=== PATIENT | male | born 1935 | race Caucasian/White ===

== ENCOUNTER → 2017-12-03 | Outpatient (CLI) | payer MEDICARE ==
[~2017-12-03] MED LIST: DUTA.5 PO; HYDR1TAB94 PO; LOSA50 PO; Pyridium100 MG PO; SULTRIDS PO; TERA5 PO
== END | disposition home or self-care (01) ==
LOC: LAB SHORT 14:06 → PLD 14:06
DX: C44.319 Basal cell carcinoma of skin of other parts of face (principal); D04.39 Carcinoma in situ of skin of other parts of face
CPT/HCPCS: 88305

== ENCOUNTER → 2017-12-18 | Outpatient (CLI) | payer MEDICARE | LOC: LAB SHORT 13:34 → PLD 13:34 | DX: C44.310 Basal cell carcinoma of skin of unspecified parts of face (principal) | CPT/HCPCS: 88305 ==

== ENCOUNTER → 2018-11-10 | Outpatient (CLI) | payer MEDICARE | END | disposition home or self-care (01) | LOC: LAB SHORT 10:03 → PLD 10:03 | DX: C44.329 Squamous cell carcinoma of skin of other parts of face (principal) | CPT/HCPCS: 88305 ==

== ENCOUNTER 2018-12-01 14:58 | Observation (INO) | payer MEDICARE ==
[~2018-12-01] VITALS: Ht 157.5 cm; Wt 51.5 kg
[~2018-12-01 14:58] MED LIST changes: +**INCOMPLETE MED REC; +CIPR250 PO
[2018-12-01 15:31] LABS: BASOPHILS ABSOLUTE AUTO 0.08 K/mm3 (0.00-0.23); BASOPHILS PERCENT AUTO 1 % (0-2); EOSINOPHILS ABSOLUTE AUTO 0.31 K/mm3 (0.00-0.68); EOSINOPHILS PERCENT AUTO 4 % (0-6); Hematocrit 36.5 % (37.0-53.0); Hemoglobin 11.4 g/dL (13.5-17.5); IMMATURE GRAN ABSOLUTE AUTO 0.02 K/mm3 (0.00-0.10); IMMATURE GRAN PERCENT AUTO 0 % (0-1); LYMPHOCYTES ABSOLUTE AUTO 1.34 K/mm3 (0.84-5.20); LYMPHOCYTES PERCENT AUTO 18 % (21-46); MONOCYTES ABSOLUTE AUTO 0.98 K/mm3 (0.16-1.47); MONOCYTES PERCENT AUTO 13 % (4-13); Mean Corpuscular HGB 30.6 pg (26.0-34.0); Mean Corpuscular HGB Conc 31.2 g/dL (31.5-36.5); Mean Platelet Volume 11.3 fL (9.1-12.4); NEUTROPHILS ABSOLUTE AUTO 4.83 K/mm3 (1.96-9.15); NEUTROPHILS PERCENT AUTO 64 % (41-73); Platelet Count 208 K/mm3 (150-400); RDW Coefficient Variation 13.5 % (11.7-14.2); RDW Standard Deviation 48.9 fL (35.1-46.3); Red Blood Cell Count 3.72 M/mm3 (4.30-5.90); White Blood Cell Count 7.56 K/mm3 (4.00-11.30)
[2018-12-01 15:32] LABS: Mean Corpuscular Volume 98 fL (80-100)
[2018-12-01 15:57] LABS: Albumin, Blood 3.7 g/dL (3.4-5.0); Albumin/Globulin Ratio 0.9 (0.8-1.8); Bilirubin, Total 0.3 mg/dL (0.1-1.0); Bun/Creatinine Ratio 23.5 (12.0-20.0); Calcium, Blood 8.4 mg/dL (8.5-10.1); Creatinine, Blood 1.49 mg/dL (0.60-1.20); Globulin, Blood 4.3 g/dL (2.2-4.0); Potassium, Blood 5.1 mmol/L (3.5-5.5)
[2018-12-01 20:22] LABS: Percent Saturation 15.4 % (20.0-50.0)
[2018-12-01 20:29] LABS: Magnesium, Blood 2.3 mg/dL (1.6-2.4)
[2018-12-01 20:31] LABS: Thyroid Stimulating Hormone 3.91 uIU/mL (0.360-4.800)
[2018-12-02 05:09] LABS: Hematocrit 32.9 % (37.0-53.0); Hemoglobin 10.5 g/dL (13.5-17.5)
[2018-12-02 05:35] LABS: Bun/Creatinine Ratio 22.1 (12.0-20.0); Calcium, Blood 8.2 mg/dL (8.5-10.1); Creatinine, Blood 1.36 mg/dL (0.60-1.20); Potassium, Blood 4.4 mmol/L (3.5-5.5)
--- NOTE | 2018-12-02 07:36 | NUR ---
SHIFT SUMMARY RECEIVED REPORT FROM ED RN. ARRIVED TO MEDICAL UNIT VIA STRETCHER @ 2152. APPEARED CONFUSED/DISORIENTED @ TIME OF ARRIVAL. ALERT TO SELF. REMAINS CONFUSED. SLOW TO RESPOND MOST OFTEN. BECAME COMBATIVE THIS AM WHEN AIDE WENT IN TO HELP HIM WITH THE URINAL AND TAKE VITALS. PLACED IN SOFT WRIST RESTRAINTS R/T INCREASED RISK FOR FALLS, CONFUSION AND COMBATIVENESS. APPEARED TO REST MUCH OF SHIFT AFTER ADMISSION. NOTED HYPERTENSION; HOWEVER APPEARS ON TREND WITH PREVIOUS PRESSURES. ALL OTHER VITALS WNL. BED IN LOWEST POSITION. ALARM ON. CALL LIGHT IN REACH. CONTINUED TO MONITOR OVERNIGHT. REPORT GIVEN TO ONCOMING RN.
--- NOTE | 2018-12-02 19:46 | NUR ---
SHIFT SUMMARY: NO ACUTE CHANGES TO REPORT THIS SHIFT. PT ALERT, ORIENTED TO SELF. ARGUMENTIVE, CONFUSED, DISORIENTED; BILATERAL SOFT WRIST RESTRAINTS IN PLACE. PT INCONTINENT OF BOWEL AND BLADDER; ATTENDS IN PLACE. LACERATION TO SCALP; SEVEN VINCENT; RAFAEL. MEPILEX IN PLACE TO LEFT ELBOW SKIN TEAR. LEFT HAND SKIN TEAR; KERLEX IN PLACE. PT & OT EVAL & TREAT R/T WEAKNESS & RECENT FALLS AT HOME. REPORT GIVEN TO ONCOMING RN.
--- NOTE | 2018-12-03 04:38 | NUR ---
NOC SHIFT SUMMARY PT HAS BEEN CONFUSED THIS NIGHT. WRIST RESTRAINTS HAVE BEEN NECESSARY THROUGHOUT THE NIGHT PT ATTEMPTS TO PULL OUT IV AND STRIKE STAFF WHEN GIVING CARE. PT HAS BEEN REPOSITIONED EVERY TWO HOURS. RESTRAINT ORDER WAS RENEWED THIS NIGHT AT [address] HRENANDEZ. NO ACUTE CHANGED THIS SHIFT. WILL CONTINUE TO MONITOR.
[2018-12-03 05:07] LABS: BASOPHILS ABSOLUTE AUTO 0.08 K/mm3 (0.00-0.23); BASOPHILS PERCENT AUTO 1 % (0-2); EOSINOPHILS ABSOLUTE AUTO 0.24 K/mm3 (0.00-0.68); EOSINOPHILS PERCENT AUTO 3 % (0-6); Hematocrit 35.7 % (37.0-53.0); Hemoglobin 11.3 g/dL (13.5-17.5); IMMATURE GRAN ABSOLUTE AUTO 0.03 K/mm3 (0.00-0.10); IMMATURE GRAN PERCENT AUTO 0 % (0-1); LYMPHOCYTES ABSOLUTE AUTO 1.19 K/mm3 (0.84-5.20); LYMPHOCYTES PERCENT AUTO 13 % (21-46); MONOCYTES ABSOLUTE AUTO 1.14 K/mm3 (0.16-1.47); MONOCYTES PERCENT AUTO 13 % (4-13); Mean Corpuscular HGB 30.4 pg (26.0-34.0); Mean Corpuscular HGB Conc 31.7 g/dL (31.5-36.5); Mean Corpuscular Volume 96 fL (80-100); Mean Platelet Volume 11.1 fL (9.1-12.4); NEUTROPHILS ABSOLUTE AUTO 6.19 K/mm3 (1.96-9.15); NEUTROPHILS PERCENT AUTO 70 % (41-73); Platelet Count 204 K/mm3 (150-400); RDW Coefficient Variation 13.1 % (11.7-14.2); RDW Standard Deviation 46.5 fL (35.1-46.3); Red Blood Cell Count 3.72 M/mm3 (4.30-5.90); White Blood Cell Count 8.87 K/mm3 (4.00-11.30)
[2018-12-03 05:31] LABS: Bun/Creatinine Ratio 18.1 (12.0-20.0); Calcium, Blood 8.4 mg/dL (8.5-10.1); Creatinine, Blood 1.27 mg/dL (0.60-1.20); Potassium, Blood 4.9 mmol/L (3.5-5.5)
[2018-12-03 15:13] LABS: Source, Urine Catheter
[2018-12-03 15:36] LABS: Bilirubin, Urine Neg (Neg); Blood, Urine 5+ (Neg); Glucose Qualitative, Urine Neg (Neg); Ketones, Urine 2+ (Neg); Leukocyte Esterase, Urine 2+ (Neg); Nitrite, Urine Neg (Neg); Protein, Urine 2+ (Neg); Urobilinogen, Urine NORM (Normal)
[2018-12-03 15:54] LABS: Appearance, Urine Clear (Clear); Color, Urine Yellow (P-Yellow)
[2018-12-03 15:55] LABS: Red Blood Cells, Urine 50-100 /hpf (0-2)
[2018-12-03 15:56] LABS: Squamous Epithelial Cells Not Seen /hpf (Few)
[2018-12-03 15:57] LABS: Bacteria Few /hpf
--- NOTE | 2018-12-03 17:30 | NUR ---
PATIENT SWITCHED FROM SOFT WRIST RESTRAINTS TO VEST THIS SHIFT. PATIENT COOPERTIVE WITH CARE AND NOT COMBATIVE OR PULLING AT LINES. DOES CONTINUE TO TRY AND CLIMB OUT OF BED. PATIENT DOES NOT USE CALL LIGHT FOR ASSISTANCE. SPEECH GARBLED AND PATIENT IS VERY DIFFICULT TO UNDERSTAND. ST EVAL TODAY AND PATIENT WAS PLACED ON NECTAR THICK DIET WITH NECTAR THICK LIQUIDS. PATIENT NEEDS ASSISTANCE WITH MEALS. DRESSING CHANGED TO L HAND SKIN TEAR AND BANDAID PLACED TO L ELBOW ABRASION. FALL PRECAUTIONS IN PLACE PER UNIT PROTOCOL. PT AND OT WORKED WITH PATIENT AND HE WAS ABLE TO WALK IN HALLS WITH FWW, GAIT BELT AND 1 ASSIST.
[2018-12-04 05:40] LABS: BASOPHILS ABSOLUTE AUTO 0.08 K/mm3 (0.00-0.23); BASOPHILS PERCENT AUTO 1 % (0-2); EOSINOPHILS ABSOLUTE AUTO 0.32 K/mm3 (0.00-0.68); EOSINOPHILS PERCENT AUTO 4 % (0-6); Hematocrit 35.8 % (37.0-53.0); Hemoglobin 11.5 g/dL (13.5-17.5); IMMATURE GRAN ABSOLUTE AUTO 0.04 K/mm3 (0.00-0.10); IMMATURE GRAN PERCENT AUTO 1 % (0-1); LYMPHOCYTES ABSOLUTE AUTO 1.39 K/mm3 (0.84-5.20); LYMPHOCYTES PERCENT AUTO 18 % (21-46); MONOCYTES ABSOLUTE AUTO 1.01 K/mm3 (0.16-1.47); MONOCYTES PERCENT AUTO 13 % (4-13); Mean Corpuscular HGB 30.2 pg (26.0-34.0); Mean Corpuscular HGB Conc 32.1 g/dL (31.5-36.5); Mean Corpuscular Volume 94 fL (80-100); Mean Platelet Volume 11.3 fL (9.1-12.4); NEUTROPHILS ABSOLUTE AUTO 5.04 K/mm3 (1.96-9.15); NEUTROPHILS PERCENT AUTO 64 % (41-73); Platelet Count 224 K/mm3 (150-400); RDW Coefficient Variation 13.2 % (11.7-14.2); RDW Standard Deviation 45.1 fL (35.1-46.3); Red Blood Cell Count 3.81 M/mm3 (4.30-5.90); White Blood Cell Count 7.88 K/mm3 (4.00-11.30)
[2018-12-04 06:01] LABS: Bun/Creatinine Ratio 17.3 (12.0-20.0); Calcium, Blood 8.4 mg/dL (8.5-10.1); Creatinine, Blood 1.27 mg/dL (0.60-1.20); Potassium, Blood 4.4 mmol/L (3.5-5.5)
--- NOTE | 2018-12-04 06:42 | NUR ---
SHIFT SUMMARY PT IS AN 83 Y/O MALE, ADMITTED FOR PHYSICAL DECONDITIONING. HE IS A&O X SELF ONLY, AND IS CURRENTLY IN A QIAN RESTRAINT THE PATIENT IS A MAJOR FALL RISK AND IS IMPULSIVE IN GETTING OUT OF BED. PT'S SPEECH IS GARBLED AND DIFFICULT TO UNDERSTAND. HE APPEARED COMFORTABLE, AND DENIED ANY COMPLAINTS OF PAIN, NAUSEA OR SOB. VITAL SIGNS STABLE. NO OTHER ACUTE CHANGES IN PT CONDITION. WILL CONTINUE TO MONITOR AND TREAT PER EMAR.
[2018-12-04] MEDS ORDERED: ACET325 PO (14:42)
[2018-12-04] MEDS ORDERED: ASCO500 PO (14:43)
[2018-12-04] MEDS ORDERED: Bisac-Evac10 MG PR (14:43)
[2018-12-04] MEDS ORDERED: CEFP200 PO (14:44)
[2018-12-04] MEDS ORDERED: DOCU100 PO (14:45)
[2018-12-04] MEDS ORDERED: Ferosul325 MG PO (14:49)
[2018-12-04] MEDS ORDERED: SACC250C PO (14:50)
[2018-12-04] MEDS ORDERED: ONDA4ODT MM (14:50)
--- NOTE | 2018-12-04 18:23 | NUR ---
PATIENT MORE ORIENTED THIS SHIFT. CONTINUED QIAN VEST RESTRAINTS FOR SAFETY. PATIENT WALKED IN HALLS WITH PT WITH FWW AND 1 ASSIST. APPETITE IMPROVED TODAY AND PATIENT DID NOT HAVE ANY PROBLEMS SWALLOWING. PILLS CRUSHED IN APPLESAUCE. 20G IV TO L UPPER ARM WNL AND SL. TYLENOL GIVEN X1 FOR STATED HEADACHE. CT OF HEAD ORDERED, BUT HAS NOT BEEN COMPLETED YET. SON MYRNA AT BEDSIDE FOR PART OF THIS SHIFT. MOM GIVEN X1 FOR CONSTIPATION.
--- NOTE | 2018-12-05 06:12 | NUR ---
SHIFT SUMMARY PT IS AN 83 Y/O MALE, ADMITTED FOR PHYSICAL DECONDITIONING. HIS SPEECH IS STILL GARBLED BUT MORE CLEAR AND EASIER TO UNDERSTAND COMPARED TO THE PREVIOUS NIGHT. HE IS STILL CONFUSED, A&O X 1-2 AND STILL IN A QIAN DUE TO HIS HIGH RISK OF FALLS. PT DENIED ANY COMPLAINTS OF PAIN, NAUSEA OR SOB AND SLEPT WELL THROUGH THE NIGHT. VITALS REMAINED STABLE. NO OTHER ACUTE CHANGES IN PT CONDITION. WILL CONTINUE TO MONITOR AND TREAT PER EMAR.
--- NOTE | 2018-12-05 16:39 | NUR ---
SHIFT SUMMARY- PT AXO X4. PT TAKEN OUT OF RESTRAINTS THIS AFTERNOON. PT HAS BEEN COOPERATIVE IN CARE AND ABLE TO FOLLOW DIRECTIONS. PT HAS NOT TRIED TO GET OUT OF BED/CHAIR THIS SHIFT. PT'S SON IN TO VISIT TODAY. PT'S SPEECH SLIGHTLY GARBLED. DR. NEGRON ADVANCED PT'S DIET TO SOFT MECH AND PILLS WHOLE IN APPLESAUCE. PT DENIES SOB. RESP E/U ON RA. PT DENIES N/V. PT 2 ASSIST WITH GAIT BELT AND FWW TO CHAIR. PHYSICAL THERAPY IN TO WORK WITH PT TODAY. NO OTHER SIGNIFICANT CHANGES THIS SHIFT.
--- NOTE | 2018-12-06 05:45 | NUR ---
NO SHIFT SUMMARY PT HAS BEEN PLEASANT AND COOPERATIVE WITH CARE THIS NIGHT. HE IS MUCH MORE ALERT COMPAIRED TO WHEN THIS RN HAD HIM LAST. AAO TO PERSON, PLACE, AND FOLLOWS DIRECTIONS WELL. NO ACUTE CHANGES NOTED THIS NIGHT. APPEARS IN NO ACUTE DISTRESS AND IS CURRENTLY SLEEPING RESTFULLY. WILL CONTINUE TO MONITOR.
--- NOTE | 2018-12-06 17:36 | NUR ---
brief visit this morning, restrainst were off pt comfotable
--- NOTE | 2018-12-06 19:05 | NUR ---
SHIFT SUMMARY NO ACUTE CONCERNS FROM THE PATIENT. HE IS FEEDNG HIMSELF. WILL ASSESS FOR CHANGES.
[2018-12-07 05:11] LABS: BASOPHILS ABSOLUTE AUTO 0.08 K/mm3 (0.00-0.23); BASOPHILS PERCENT AUTO 1 % (0-2); EOSINOPHILS ABSOLUTE AUTO 0.37 K/mm3 (0.00-0.68); EOSINOPHILS PERCENT AUTO 5 % (0-6); Hematocrit 35.6 % (37.0-53.0); Hemoglobin 11.2 g/dL (13.5-17.5); IMMATURE GRAN ABSOLUTE AUTO 0.06 K/mm3 (0.00-0.10); IMMATURE GRAN PERCENT AUTO 1 % (0-1); LYMPHOCYTES ABSOLUTE AUTO 1.69 K/mm3 (0.84-5.20); LYMPHOCYTES PERCENT AUTO 23 % (21-46); MONOCYTES ABSOLUTE AUTO 0.94 K/mm3 (0.16-1.47); MONOCYTES PERCENT AUTO 13 % (4-13); Mean Corpuscular HGB 30.4 pg (26.0-34.0); Mean Corpuscular HGB Conc 31.5 g/dL (31.5-36.5); Mean Platelet Volume 11.3 fL (9.1-12.4); NEUTROPHILS ABSOLUTE AUTO 4.18 K/mm3 (1.96-9.15); NEUTROPHILS PERCENT AUTO 57 % (41-73); Platelet Count 258 K/mm3 (150-400); RDW Standard Deviation 46.5 fL (35.1-46.3); Red Blood Cell Count 3.69 M/mm3 (4.30-5.90); White Blood Cell Count 7.32 K/mm3 (4.00-11.30)
[2018-12-07 05:12] LABS: Mean Corpuscular Volume 97 fL (80-100)
--- NOTE | 2018-12-07 06:00 | NUR ---
NOC SHIFT SUMMARY PT PLEASANT AND COOPERATIVE WITH CARE. NO ACUTE CHANGES THIS NIGHT. APPEARS TO BE GENERALY IMPROVING. WILL CONTINUE TO MONITOR.
[2018-12-07 11:34] LABS: Bun/Creatinine Ratio 29.2 (12.0-20.0); Calcium, Blood 8.3 mg/dL (8.5-10.1); Creatinine, Blood 1.44 mg/dL (0.60-1.20); Potassium, Blood 4.9 mmol/L (3.5-5.5)
--- NOTE | 2018-12-07 14:07 | NUR ---
PLAN TO GO TO SNF FOR REHAB POSSIBLY TOMORROW. TALKED WITH PATIENT AND SON IN ROOM. THEY FEEL THIS IS BEST OPTION R/T WEAKNESS AND FTT. PT A/O/[place]/PLEASANT AND COOP WITH CARE. SKIN APPEARANCE FRAGILE T/O. STITCHES AT TOP OF HEAD. DENIES PAIN AT THIS TIME AND HAS BEEN COMFORTABLE AND TALKATIVE T/O MORNING. TAKING PILLS WHOLE IN APPLESAUCE.
--- NOTE | 2018-12-07 17:29 | NUR ---
NO ACUTE CHANGES. PLAN TO MOVE FORWARD WITH SNF PER AND SON'S WISHES.
[2018-12-08 05:24] LABS: Hematocrit 35.5 % (37.0-53.0); Hemoglobin 11.2 g/dL (13.5-17.5); Mean Corpuscular HGB 29.8 pg (26.0-34.0); Mean Corpuscular HGB Conc 31.5 g/dL (31.5-36.5); Mean Platelet Volume 11.4 fL (9.1-12.4); Platelet Count 266 K/mm3 (150-400); RDW Standard Deviation 44.4 fL (35.1-46.3); Red Blood Cell Count 3.76 M/mm3 (4.30-5.90); White Blood Cell Count 7.64 K/mm3 (4.00-11.30)
[2018-12-08 05:26] LABS: Mean Corpuscular Volume 94 fL (80-100)
[2018-12-08] MEDS ORDERED: HYDR10 PO (15:59)
== END 2018-12-08 16:55 ==
LOC: ER 14:58 → MEDS 14:59 → ENPENDDIS 12-08 13:28 → MEDS 12-08 16:55
PROVIDERS: Family Medicine; Nurse Practitioner Acute Care; Physician Assistant; ADMIT Internal Medicine
DX: G93.40 Encephalopathy, unspecified (principal); N39.0 Urinary tract infection, site not specified; B95.2 Enterococcus as the cause of diseases classified elsewhere; R29.6 Repeated falls; D63.1 Anemia in chronic kidney disease; I12.9 Hypertensive chronic kidney disease with stage 1 through stage 4 chronic kidney disease, or unspecified chronic kidney disease; N18.3 Chronic kidney disease, stage 3 (moderate); Z79.899 Other long term (current) drug therapy; Z88.8 Allergy status to other drugs, medicaments and biological substances
CPT/HCPCS: 36415; 70450; 80048; 80053; 81001; 82728; 83540; 83550; 83735; 84443; 85014; 85018; 85025; 85027; 87086; 92526; 92610; 96360; 96361; 96365; 96366; 96372; 96376; 97116; 97162; 97166; 97530; 97535; 99285-25; G0378; J0696; J1650; J7050; J7120

== ENCOUNTER 2018-12-29 17:50 | Inpatient (IN) | payer MEDICARE ==
[~2018-12-29] VITALS: Ht 167.6 cm; Wt 66.2 kg
[~2018-12-29 17:50] MED LIST changes: +8HR ARTHRITIS650 MG PO; +ASCO500 PO; +Bisac-Evac10 MG PR; +CEFP200 PO; +DOCU100 PO; +Ferosul325 MG PO; +HYDR10 PO; +ONDA4ODT MM; +SACC250C PO
[2018-12-29 18:55] LABS: Source, Urine Voided
[2018-12-29 19:01] LABS: Appearance, Urine Cloudy (Clear); Bilirubin, Urine Neg (Neg); Blood, Urine 5+ (Neg); Color, Urine Yellow (P-Yellow); Glucose Qualitative, Urine Neg (Neg); Ketones, Urine Neg (Neg); Leukocyte Esterase, Urine 2+ (Neg); Nitrite, Urine Neg (Neg); Protein, Urine 3+ (Neg); Urobilinogen, Urine NORM (Normal); pH, Urine 6.5 (5.0-8.0)
[2018-12-29 19:05] LABS: BASOPHILS ABSOLUTE AUTO 0.09 K/mm3 (0.00-0.23); BASOPHILS PERCENT AUTO 1 % (0-2); EOSINOPHILS ABSOLUTE AUTO 0.22 K/mm3 (0.00-0.68); EOSINOPHILS PERCENT AUTO 3 % (0-6); Hematocrit 35.8 % (37.0-53.0); Hemoglobin 11.2 g/dL (13.5-17.5); IMMATURE GRAN ABSOLUTE AUTO 0.02 K/mm3 (0.00-0.10); IMMATURE GRAN PERCENT AUTO 0 % (0-1); LYMPHOCYTES ABSOLUTE AUTO 1.44 K/mm3 (0.84-5.20); LYMPHOCYTES PERCENT AUTO 20 % (21-46); MONOCYTES ABSOLUTE AUTO 0.87 K/mm3 (0.16-1.47); MONOCYTES PERCENT AUTO 12 % (4-13); Mean Corpuscular HGB 30.2 pg (26.0-34.0); Mean Corpuscular HGB Conc 31.3 g/dL (31.5-36.5); Mean Corpuscular Volume 97 fL (80-100); Mean Platelet Volume 11.7 fL (9.1-12.4); NEUTROPHILS ABSOLUTE AUTO 4.51 K/mm3 (1.96-9.15); NEUTROPHILS PERCENT AUTO 63 % (41-73); Platelet Count 234 K/mm3 (150-400); RDW Coefficient Variation 12.8 % (11.7-14.2); RDW Standard Deviation 45.8 fL (35.1-46.3); Red Blood Cell Count 3.71 M/mm3 (4.30-5.90); White Blood Cell Count 7.15 K/mm3 (4.00-11.30)
[2018-12-29 19:13] LABS: Albumin, Blood 3.5 g/dL (3.4-5.0); Albumin/Globulin Ratio 0.8 (0.8-1.8); Bilirubin, Total 0.4 mg/dL (0.1-1.0); Bun/Creatinine Ratio 22.6 (12.0-20.0); Calcium, Blood 8.6 mg/dL (8.5-10.1); Creatinine, Blood 1.37 mg/dL (0.60-1.20); Globulin, Blood 4.3 g/dL (2.2-4.0); Potassium, Blood 5.7 mmol/L (3.5-5.5); Total Protein, Blood 7.8 g/dL (6.4-8.2)
[2018-12-29 19:18] LABS: Red Blood Cells, Urine TNTC /hpf (0-2)
[2018-12-29 19:19] LABS: Bacteria Mod /hpf; Squamous Epithelial Cells Not Seen /hpf (Few)
[2018-12-29] MEDS ORDERED: CEPH500 PO (20:44)
[2018-12-29] MEDS ORDERED: Seroquel25 MG PO (20:44)
[2018-12-30 05:38] LABS: BASOPHILS ABSOLUTE AUTO 0.09 K/mm3 (0.00-0.23); BASOPHILS PERCENT AUTO 1 % (0-2); EOSINOPHILS ABSOLUTE AUTO 0.16 K/mm3 (0.00-0.68); EOSINOPHILS PERCENT AUTO 2 % (0-6); Hematocrit 35.6 % (37.0-53.0); Hemoglobin 11.1 g/dL (13.5-17.5); IMMATURE GRAN ABSOLUTE AUTO 0.04 K/mm3 (0.00-0.10); IMMATURE GRAN PERCENT AUTO 0 % (0-1); LYMPHOCYTES PERCENT AUTO 16 % (21-46); MONOCYTES ABSOLUTE AUTO 0.95 K/mm3 (0.16-1.47); MONOCYTES PERCENT AUTO 11 % (4-13); Mean Corpuscular HGB 29.5 pg (26.0-34.0); Mean Corpuscular HGB Conc 31.2 g/dL (31.5-36.5); Mean Corpuscular Volume 95 fL (80-100); Mean Platelet Volume 11.2 fL (9.1-12.4); NEUTROPHILS ABSOLUTE AUTO 6.39 K/mm3 (1.96-9.15); NEUTROPHILS PERCENT AUTO 71 % (41-73); Platelet Count 228 K/mm3 (150-400); RDW Coefficient Variation 12.6 % (11.7-14.2); RDW Standard Deviation 43.6 fL (35.1-46.3); Red Blood Cell Count 3.76 M/mm3 (4.30-5.90); White Blood Cell Count 9.03 K/mm3 (4.00-11.30)
[2018-12-30 06:12] LABS: Bun/Creatinine Ratio 22.1 (12.0-20.0); Calcium, Blood 7.9 mg/dL (8.5-10.1); Creatinine, Blood 1.36 mg/dL (0.60-1.20); Potassium, Blood 5.2 mmol/L (3.5-5.5)
--- NOTE | 2018-12-30 06:15 | NUR ---
SHIFT SUMMARY PT ARRIVED TO ROOM IN NO DISTRESS. PT FELL ASLEEP SHORTLY AFTER ARRIVING. PT HAS SLEPT T/O REMAINDER OF SHIFT. PT HAD NO COMPLAINTS OR ISSUES NOTED. CALL LIGHT IN REACH AND BED ALARM ON.
--- NOTE | 2018-12-30 08:56 | NUR ---
PT DIFFICULT TO ARROUSE ENOUGH TO EAT BREAKFAST OR TAKE AM MEDS. PT IS ARROUSABLE TO PHYSICAL STIMULI BUT QUICKLY BECOMES VERY LETHARGIC.
--- NOTE | 2018-12-30 17:39 | NUR ---
SHIFT SUMMARY. PT VERY LETHARGIC THIS SHIFT, APPEARING TO SLEEP DURING MOST OF SHIFT. PT TOO LETHARGIC FOR AM MEDS AND BREAKFAST, PT WAS ABLE TO EAT SMALL AMOUNT OF LUNCH. NO S/SX OF DISTRESS OR DISCOMFORT. SPOKE WITH PT'S SON, HE VERBALIZED THAT HE BELIEVES THAT IT IS TIME TO PURSUE PLACEMENT OPTIONS. PALLIATIVE CARE IN TO SEE PT THIS AFTERNOON.
--- NOTE | 2018-12-31 05:16 | NUR ---
NOC SHIFT SUMMARY PT HAS SLEPT FOR MOST OF SHIFT. WAS NOT ABLE TO GIVE 2100 ORAL MED PT REFUSED. HE HAS BEEN VERY SLEEPY BUT IS EASILY AROUSED. BECOMES AGITATED WITH CARE AND ATTEMPTS TO STRIKE STAFF. BECAME NECESSARY TO OBTAIN WRIST RESTRAINT ORDER AT 2147. NO ACUTE CHANGES NOTED THIS SHIFT. PT DOES APPEAR TO REST AND SLEEP BETWEEN PATIENT CARE SESSIONS. CURRENTLY APPEARS IN NO ACUTE DISTRESS. WILL CONTINUE TO MONITOR.
[2018-12-31 05:31] LABS: BASOPHILS ABSOLUTE AUTO 0.07 K/mm3 (0.00-0.23); BASOPHILS PERCENT AUTO 1 % (0-2); EOSINOPHILS ABSOLUTE AUTO 0.19 K/mm3 (0.00-0.68); EOSINOPHILS PERCENT AUTO 2 % (0-6); Hematocrit 34.3 % (37.0-53.0); Hemoglobin 10.8 g/dL (13.5-17.5); IMMATURE GRAN ABSOLUTE AUTO 0.02 K/mm3 (0.00-0.10); IMMATURE GRAN PERCENT AUTO 0 % (0-1); LYMPHOCYTES ABSOLUTE AUTO 1.36 K/mm3 (0.84-5.20); LYMPHOCYTES PERCENT AUTO 17 % (21-46); MONOCYTES PERCENT AUTO 12 % (4-13); Mean Corpuscular HGB 30.4 pg (26.0-34.0); Mean Corpuscular HGB Conc 31.5 g/dL (31.5-36.5); Mean Corpuscular Volume 97 fL (80-100); Mean Platelet Volume 11.3 fL (9.1-12.4); NEUTROPHILS ABSOLUTE AUTO 5.32 K/mm3 (1.96-9.15); NEUTROPHILS PERCENT AUTO 68 % (41-73); Platelet Count 214 K/mm3 (150-400); RDW Coefficient Variation 12.5 % (11.7-14.2); RDW Standard Deviation 44.3 fL (35.1-46.3); Red Blood Cell Count 3.55 M/mm3 (4.30-5.90); White Blood Cell Count 7.86 K/mm3 (4.00-11.30)
[2018-12-31 06:21] LABS: Bun/Creatinine Ratio 19.4 (12.0-20.0); Calcium, Blood 8.5 mg/dL (8.5-10.1); Creatinine, Blood 1.44 mg/dL (0.60-1.20); Potassium, Blood 5.1 mmol/L (3.5-5.5)
--- NOTE | 2018-12-31 18:28 | NUR ---
SHIFT SUMMARY PT HAS HAD NO ACUTE CHANGES THIS SHIFT, HAS REMAINED LETHARGIC T/O, SON AT BEDSIDE 3X DURING SHIFT, NO PO MEDS ADMINISTERED. PT IS SLEEPING AT THIS TIME, WILL CONT TO MONITOR UNTIL REPORT GIVEN TO NORA RN.
[2019-01-01 05:01] LABS: BASOPHILS ABSOLUTE AUTO 0.08 K/mm3 (0.00-0.23); BASOPHILS PERCENT AUTO 1 % (0-2); EOSINOPHILS ABSOLUTE AUTO 0.25 K/mm3 (0.00-0.68); EOSINOPHILS PERCENT AUTO 3 % (0-6); Hematocrit 36.4 % (37.0-53.0); IMMATURE GRAN ABSOLUTE AUTO 0.05 K/mm3 (0.00-0.10); IMMATURE GRAN PERCENT AUTO 1 % (0-1); LYMPHOCYTES ABSOLUTE AUTO 1.36 K/mm3 (0.84-5.20); LYMPHOCYTES PERCENT AUTO 16 % (21-46); MONOCYTES ABSOLUTE AUTO 1.08 K/mm3 (0.16-1.47); MONOCYTES PERCENT AUTO 12 % (4-13); Mean Corpuscular HGB 29.7 pg (26.0-34.0); Mean Corpuscular HGB Conc 30.2 g/dL (31.5-36.5); Mean Corpuscular Volume 98 fL (80-100); Mean Platelet Volume 10.9 fL (9.1-12.4); NEUTROPHILS ABSOLUTE AUTO 5.95 K/mm3 (1.96-9.15); NEUTROPHILS PERCENT AUTO 68 % (41-73); Platelet Count 202 K/mm3 (150-400); RDW Coefficient Variation 12.7 % (11.7-14.2); RDW Standard Deviation 45.7 fL (35.1-46.3); White Blood Cell Count 8.77 K/mm3 (4.00-11.30)
[2019-01-01 06:01] LABS: Bun/Creatinine Ratio 25.5 (12.0-20.0); Calcium, Blood 8.6 mg/dL (8.5-10.1); Creatinine, Blood 1.49 mg/dL (0.60-1.20); Potassium, Blood 4.9 mmol/L (3.5-5.5)
--- NOTE | 2019-01-01 06:25 | NUR ---
Rn summary: Patient is alert and cooperative. Pt has rested well most of night. Pt has been incontinent of urine x2. Pt did receive IV abx as ordered. Pt did try to get out of bed x1, bed alarm is on for safety. Pt repositioned for comfort. Stable/ Call light in reach.
--- NOTE | 2019-01-01 16:34 | NUR ---
SHIFT SUMMARY PT HAS BEEN A&O X4 THIS SHIFT, HAS BEEN UP TO CHAIR FOR MEALS AND WALKED WITH THERAPY W/ST BY ASSIST IN HALLWAY. NO COMPLAINTS OF ANY KIND, APPEARS TO BE SLEEPING AT THIS TIME, WILL CONT TO MONITOR UNTIL REPORT GIVEN TO NORA VEE.
--- NOTE | 2019-01-02 05:43 | NUR ---
Rn summary: Patient is alert and oriented. He was up in the chair at the beginning of shift. Pt assisted to bed and has rested well all night. Pt incontinent of urine x1. Bed alarm on. Call light in reach.
--- NOTE | 2019-01-02 18:12 | NUR ---
THIS PT IS ALERT AND ORIENTED X3. HIS SON CAME TO VISIT HIM TODAY. HE WORKED WITH PT AND OT. HE GOT UP TO THE CHAIR FOR BREAKFAST AND LUNCH AND IN BETWEEN MEALS. HE COMPLAINED OF BACK AND NECK PAIN THIS AFTERNOON, REPOSITIONING AND GETTING BACK IN BED HELPED. WILL CONTINUE TO MONITOR.
--- NOTE | 2019-01-03 05:30 | NUR ---
83 year old Male with metabolic encephalopathy and several subdural hematomas is alert and oriented for me. He was at SNF for rehab post release from [facility] after multiple falls. He is on fall precautions and set off alerm x 1. He worked with PT OT yesterday and Family requests he got to adult foster care versus home with assist. SW involved with dc plan. Pt has CT of brain sched to follow up 2 subdurals seen recently on imaging. PT has old large scar lt holiness from skin cancer removal remote.
--- NOTE | 2019-01-03 17:14 | NUR ---
PATIENT ALERT AND ORIENTED. MEDICATED FOR NECK PAIN W/SCHEDULED MEDS W/GOOD RESULTS. UP IN CHAIR FOR MEALS. UNLABORED RESPIRATIONS. COOPERATIVE. INCONTINENT AT TIMES. BED IN LOW PSOITION. CALL LIGHT WITHIN REACH. WILL CONTINUE TO MONITOR.
[2019-01-04 05:32] LABS: BASOPHILS ABSOLUTE AUTO 0.05 K/mm3 (0.00-0.23); BASOPHILS PERCENT AUTO 1 % (0-2); EOSINOPHILS ABSOLUTE AUTO 0.27 K/mm3 (0.00-0.68); EOSINOPHILS PERCENT AUTO 4 % (0-6); Hemoglobin 10.3 g/dL (13.5-17.5); IMMATURE GRAN ABSOLUTE AUTO 0.02 K/mm3 (0.00-0.10); IMMATURE GRAN PERCENT AUTO 0 % (0-1); LYMPHOCYTES ABSOLUTE AUTO 1.54 K/mm3 (0.84-5.20); LYMPHOCYTES PERCENT AUTO 22 % (21-46); MONOCYTES ABSOLUTE AUTO 0.83 K/mm3 (0.16-1.47); MONOCYTES PERCENT AUTO 12 % (4-13); Mean Corpuscular HGB 29.9 pg (26.0-34.0); Mean Corpuscular HGB Conc 31.2 g/dL (31.5-36.5); Mean Corpuscular Volume 96 fL (80-100); Mean Platelet Volume 11.4 fL (9.1-12.4); NEUTROPHILS ABSOLUTE AUTO 4.24 K/mm3 (1.96-9.15); NEUTROPHILS PERCENT AUTO 61 % (41-73); Platelet Count 202 K/mm3 (150-400); RDW Coefficient Variation 12.8 % (11.7-14.2); RDW Standard Deviation 44.6 fL (35.1-46.3); Red Blood Cell Count 3.45 M/mm3 (4.30-5.90); White Blood Cell Count 6.95 K/mm3 (4.00-11.30)
--- NOTE | 2019-01-04 05:51 | NUR ---
83 year old Male with Dementia continues a high fall risk, has poor safety awareness. Alert with intermittant confusion. Able to communicate. Does not use call agustin. Up x 1 with 2 extensive assist to bedside commode for large formed BM. Needs extensive assist with adls and nutrition hydration toileting and ambulation. very unsteady gait.
[2019-01-04 05:55] LABS: Bun/Creatinine Ratio 30.3 (12.0-20.0); Calcium, Blood 8.5 mg/dL (8.5-10.1); Creatinine, Blood 1.55 mg/dL (0.60-1.20); Potassium, Blood 4.8 mmol/L (3.5-5.5)
--- NOTE | 2019-01-04 10:52 | NUR ---
PATIENT HAS NO IV MEDS, ASKED IF CAN HAVE NO IV ASSESS NEEDED. OK TO ORDER.
--- NOTE | 2019-01-04 16:04 | NUR ---
PER SON "PATIENT HAS UTI WHEN HE IS CONFUSED." ADVISED AND HE OK'D CAN SEND URINE IF NEEDED. ALSO ORDER HALDOL 0.5 TO 1 MG P.O. Q6 PRN OR 5 MG IM Q6. PER PATIENT DID NOT HAVE UTI.
--- NOTE | 2019-01-04 18:32 | NUR ---
ALERT TO SELF AND SON. DIFFICULT TO UNDERSTAND SPEECH. POSSIBLE HALLUCINATIONS HAS BEEN HEARD TALKING IN ROOM WHEN NOONE IS IN ROOM. INCONTINENT OF URINE. TRIES TO GET OUT OF BED OFTEN. UNABLE TO FEED SELF. CAN NOT GET UTENSILS OR STRAW TO MOUTH. COOPERATIVE IN REGARDS TO TAKING MEDS. UNLABORED RESPIRATIONS. NO IV ASSESS. WCTM.
--- NOTE | 2019-01-05 00:48 | NUR ---
PT CONTINUES ALERT AND ORIENTED TO SELF WHEN CUED BUT SPEECH IS GARBLED AND INAPPROPRIATE OTHERWISE. VERY HIGH FALL RISK HAS 2 SMALL SUBDURAL HEMATOMA. HAS LT FACIAL GNOSTICIST DISFIGURATION FROM SKIN CANCER REMOVAL. INCONTINENT OF XLAGE SOFT DARK BM AND EXTRA LARGE AMTS OF CLEAR NONFOUL SMELLING URINE. CONSTANTLY MOIST DUE TO INCONTINENT DESPITE OFFERING TOILETING. AWAKE MOST OF SHIFT MOVING DOWN IN BED AND LEGS MOVING. Pt IS STIFF RIGID AND NEEDS 2 MAX ASSIST TO TRANSFER AND TOILET. NEEDS FED, CAN DRINK WITH STRAW. DRANK ENSURE WHEN OFFERED. .
--- NOTE | 2019-01-05 06:37 | NUR ---
pt continues on remote camera monitor due to fall risk. he has multiple incontinece episodes and needs 2 max assist to change brief. appears to hallucinate at times. Speech continues garbled and he is difficulty to understand. no safety awareness. does not use call agustin. at times yells and wants attention after staff has spent at least 20 mins on 1 to meet toileting needs. knows Son Miriam name and hollers out for his . Discharge planning continues for Memory care facility . on room air incontinent of bowel and bladder. urine does not appear to indicate and infection. some inappropropriate speech, wanted RN to get in bed with him. resisted male staff x 1 when he was having attends changed.
--- NOTE | 2019-01-05 18:37 | NUR ---
SHIFT SUMMARY PT UP TO CHAIR THIS MORNING AND STAYED UNTIL AFTER LUNCH. WAS SLEEPING DURING LUNCHTIME BUT THEN ROUSED SOON AFTER AND BECAME RESTLESS. OFFERED FOOD AND PT SAID YES. ASSISTED WITH MEALS AND ONLY OFFERED WHEN AWAKE AND ALERT. WAS ASSISTED BACK TO BED THIS AFTERNOON AND BEDBATH GIVEN. WAS RESTLESS FOR A PERIOD OF TIME IN BED AND THEN FELL ASLEEP. SLEEPING SINCE. SON AT BEDSIDE THIS MORNING.
--- NOTE | 2019-01-06 05:31 | NUR ---
*SHIFT SUMMARY* PATIENT TALKS WITH STAFF, SOMETIMES IT IS HARD TO UNDERSTAND WHAT PT IS TRYING TO SAY. PT SLEPT THROUGHOUT THE NIGHT. VITAL SIGNS STABLE. BED ALARM ON. NO ACUTE CHANGES NOTED.
[2019-01-07 05:18] LABS: Hematocrit 36.8 % (37.0-53.0); Hemoglobin 11.4 g/dL (13.5-17.5); Mean Corpuscular HGB 30.2 pg (26.0-34.0); Mean Corpuscular Volume 97 fL (80-100); Mean Platelet Volume 11.8 fL (9.1-12.4); Platelet Count 190 K/mm3 (150-400); RDW Coefficient Variation 12.6 % (11.7-14.2); RDW Standard Deviation 44.7 fL (35.1-46.3); Red Blood Cell Count 3.78 M/mm3 (4.30-5.90); White Blood Cell Count 6.23 K/mm3 (4.00-11.30)
[2019-01-07 05:56] LABS: Bun/Creatinine Ratio 37.7 (12.0-20.0); Calcium, Blood 8.6 mg/dL (8.5-10.1); Creatinine, Blood 1.67 mg/dL (0.60-1.20); Potassium, Blood 5.4 mmol/L (3.5-5.5)
--- NOTE | 2019-01-07 06:05 | NUR ---
SHIFT SUMMARY PT IS AN 83 Y/O MALE, ADMITTED FOR METABOLIC ENCEPHALOPATHY. THE PT RESTED COMFORTABLY DURING THE NIGHT, THOUGH HE WOKE EASILY FOR HIS PM MEDICATIONS AND WAS ABLE TO TAKE THEM WITH NO PROBLEMS. HE DENIED ANY COMPLAINTS OF PAIN, NAUSEA OR SOB, WITH NO S/S OF DISTRESS. VITALS REMAINED STABLE. NO ACUTE CHANGES IN PT CONDITION NOTED DURING THE NIGHT. WILL CONTINUE TO MONITOR AND TREAT PER EMAR.
--- NOTE | 2019-01-07 15:46 | NUR ---
SHIFT SUMMARY PATIENT UP IN CHAIR FOR MEALS, TOLERATING THIS WELL. PATIENT REQUIRED PILLS IN APPLESAUCE DUE TO COUGHING EPISODE. TOLERATED THIS WAY OF ADMINISTERING PILLS WELL. PATIENT RECIEVED A SHOWER, TOELRATED THIS WELL. SON IN TO VISIT TODAY. FOSTER HOME EVALUATING FOR POTENTIAL PLACEMENT TODAY.
--- NOTE | 2019-01-07 18:15 | NUR ---
SHIFT SUMMARY PT UP IN CHAIR FOR MEALS AND RESTING IN BED BETWEEN MEALS. PT WENT FOR A WALK WITH PHYSICAL THERAPY TODAY AND HAS BEEN IN A POSITIVE MOOD ALL SHIFT. PT HAD TROUBLE SWALLOWING AM MEDS WITH WATER AND STRAW, SWITCHED TO ADMINISTERING MEDS IN APPLESAUCE AND PT TOLERATED THIS MUCH BETTER. GAVE SHOWER AND APPLIED BARRIER OINTMENT SACRAL AND PERINEAL AREA BECAUSE OF REDDENING. PATIENT HAS BEEN EATING WELL ALL DAY AND FEEDING HIMSELF WELL.NEEDS HELP SETTING UP MEALS AND OPENING CONTAINERS. SCDS APPLIED WHEN IN BED.
--- NOTE | 2019-01-08 04:39 | NUR ---
83 Y/O MALE RESTED QUIETLY ALL EVENING. PT DENIES PAIN OR NAUSEA. PTS BED ALRM INTACT. PTS BED IN LOW POSITION WITH CALL LIGHT AT SIDE.
--- NOTE | 2019-01-08 18:48 | NUR ---
SHIFT SUMMARY PATIENT A&O X3. DENIES ANY SOB OR NAUSEA THIS SHIFT. C/O OF A HEADACHE, MEDICATED X1 WITH TYLENOL. DENIES ANY OTHER PAIN. RESTED THROUGHOUT THE SHIFT. UP TO CHAIR FOR A FEW HOURS. NO IV ACCESS. BED IN LOWEST POSITION, CALL LIGHT WITHIN REACH. NO ACUTE CHANGES THIS SHIFT.
--- NOTE | 2019-01-09 03:57 | NUR ---
83 Y/O MALE RESTED QUIETLY ALL EVENING. PTS DENIES PAIN OR NAUSEA. PTS BED IN LOW POSITION, CALL LIGHT AT SIDE, BED ALARM ON.
[2019-01-09] MEDS ORDERED: BISA10S PR (13:55)
[2019-01-09] MEDS ORDERED: CALCIUM 600 +1 EAC2 PO (13:56)
[2019-01-09] MEDS ORDERED: Capsaicin60 GM TOP (13:57)
[2019-01-09] MEDS ORDERED: DOCU100 PO (13:58)
[2019-01-09] MEDS ORDERED: DONE5 PO (14:00)
[2019-01-09] MEDS ORDERED: LIDO700A20 TOP (14:01)
[2019-01-09] MEDS ORDERED: HALO.5 PO (14:01)
[2019-01-09] MEDS ORDERED: ONDA4ODT MM (14:02)
--- NOTE | 2019-01-09 15:59 | NUR ---
DISCHARGE SUMMARY PATIENT A&O X3. 1 PA TO BSC. CALLS APPROPRIATELY. UP TO THE CHAIR FOR MEALS THIS SHIFT. RESTED THROUGHOUT THE SHIFT. DENIES ANY PAIN, SOB, OR NAUSEA. RN MEDICATED PER Nov. NO IV ACCESS. SON IS AT THE BEDSIDE. ALL DISCHARGE INSTRUCTIONS REVIEWED WITH THE PATIENT AND HIS SON. MEDICATIONS FAXED TO [facility]. PATIENT EDUCATION PROVIDED. SOFTWARE DEVELOPER CONSULTANT ESCORTED PATIENT OUT BY WHEELCHAIR, SON AT HIS SIDE. ALL BELONGINGS IN HAND.
== END 2019-01-09 15:37 | disposition home health service (06) | DRG 689 ==
LOC: ER 17:50 → MEDS 21:48 → ERHOLD 21:48 → MEDS 12-30 00:40
PROVIDERS: Emergency Medicine; Family Medicine; ADMIT Hospitalist
DX: N39.0 Urinary tract infection, site not specified (principal); G93.41 Metabolic encephalopathy; F03.91 Unspecified dementia, unspecified severity, with behavioral disturbance; I12.9 Hypertensive chronic kidney disease with stage 1 through stage 4 chronic kidney disease, or unspecified chronic kidney disease; N18.3 Chronic kidney disease, stage 3 (moderate); D63.1 Anemia in chronic kidney disease; Z66 Do not resuscitate; Z78.1 Physical restraint status
CPT/HCPCS: 36415; 70450; 76770; 80048; 80053; 81001; 83605; 85025; 85027; 87086; 93005; 93010; 96374; 97110; 97116; 97162; 97167; 97530; 97535; 99285-25; J0696; J7030; J7050

== ENCOUNTER 2019-01-19 10:00 | Emergency (ER) | payer MEDICARE ==
[~2019-01-19] VITALS: Ht 160 cm; Wt 72.6 kg
[~2019-01-19 10:00] MED LIST changes: +BISA10S PR; +CALCIUM 600 +1 EAC2 PO; +CEPH500 PO; +Capsaicin60 GM TOP; +DONE5 PO; +HALO.5 PO; +LIDO700A20 TOP; +Seroquel25 MG PO
[2019-01-19 10:46] LABS: Source, Urine Clean Catch
[2019-01-19 10:54] LABS: Bilirubin, Urine Neg (Neg); Blood, Urine 5+ (Neg); Glucose Qualitative, Urine Neg (Neg); Ketones, Urine 1+ (Neg); Leukocyte Esterase, Urine 2+ (Neg); Nitrite, Urine Neg (Neg); Protein, Urine 3+ (Neg); Specific Gravity, Urine 1.015 (1.003-1.022); Urobilinogen, Urine NORM (Normal)
[2019-01-19 11:01] LABS: BASOPHILS ABSOLUTE AUTO 0.09 K/mm3 (0.00-0.23); BASOPHILS PERCENT AUTO 1 % (0-2); EOSINOPHILS ABSOLUTE AUTO 0.18 K/mm3 (0.00-0.68); EOSINOPHILS PERCENT AUTO 2 % (0-6); Hematocrit 35.8 % (37.0-53.0); Hemoglobin 11.4 g/dL (13.5-17.5); IMMATURE GRAN ABSOLUTE AUTO 0.04 K/mm3 (0.00-0.10); IMMATURE GRAN PERCENT AUTO 0 % (0-1); LYMPHOCYTES ABSOLUTE AUTO 1.18 K/mm3 (0.84-5.20); LYMPHOCYTES PERCENT AUTO 11 % (21-46); MONOCYTES ABSOLUTE AUTO 0.86 K/mm3 (0.16-1.47); MONOCYTES PERCENT AUTO 8 % (4-13); Mean Corpuscular HGB Conc 31.8 g/dL (31.5-36.5); Mean Platelet Volume 12.2 fL (9.1-12.4); NEUTROPHILS ABSOLUTE AUTO 8.46 K/mm3 (1.96-9.15); NEUTROPHILS PERCENT AUTO 78 % (41-73); Platelet Count 231 K/mm3 (150-400); RDW Standard Deviation 44.3 fL (35.1-46.3); White Blood Cell Count 10.81 K/mm3 (4.00-11.30)
[2019-01-19 11:02] LABS: Mean Corpuscular Volume 94 fL (80-100)
[2019-01-19 11:14] LABS: Appearance, Urine Hazy (Clear); Color, Urine Yellow (P-Yellow)
[2019-01-19 11:17] LABS: Bacteria Mod /hpf; Red Blood Cells, Urine 50-100 /hpf (0-2); Squamous Epithelial Cells Rare /hpf (Few)
[2019-01-19 11:18] LABS: Granular Casts 0-2 /lpf (0); WBC Cast 0-2 /lpf (0)
[2019-01-19 11:23] LABS: Albumin, Blood 3.4 g/dL (3.4-5.0); Albumin/Globulin Ratio 0.8 (0.8-1.8); Bilirubin, Total 0.5 mg/dL (0.1-1.0); Bun/Creatinine Ratio 19.6 (12.0-20.0); Calcium, Blood 8.6 mg/dL (8.5-10.1); Creatinine, Blood 1.63 mg/dL (0.60-1.20); Globulin, Blood 4.3 g/dL (2.2-4.0); Potassium, Blood 5.5 mmol/L (3.5-5.5); Total Protein, Blood 7.7 g/dL (6.4-8.2)
[2019-01-19] MEDS ORDERED: Lorazepam2 MG/1 ML PO (14:14)
[2019-01-19] MEDS ORDERED: SULFATRIM PEDI473 ML PO (14:19)
--- NOTE | 2019-01-19 14:22 | NUR ---
Initial Visit: Spoke with Dr Larose and he reports Pt and family would benefit from palliative care visit. Dr Larose reports Pt is not a candidate for admission to the hospital. Pt is nonverbal and appears agitated as evidenced by moving his feet and arms in the air. He is also attempting to disrobe. Pt's son Cj is present during visit. His number is [phone]. Pt does not respond to verbal stimulus and keeps his eyes closed during visit. Engaged in therapeutic conversation regarding goals of care. Confirmed with Cj of current POLST on file. Cj confirms POLST is correct. Wishes are DNR, comfort measures only, and no artificial nutrition by tube. Educated Cj on disease process including trajectory of disease. Listened as Cj describes Pt's decline over the last couple of months. Cj reports Pt would not want to continue like this. Discussed the option of hospice and educated on hospice philosophy. Cj is agreeable to Hospice services and would like the agency that can come to Pt's home the soonest. Called and spoke with neurocritical care physician Dottie and she reports that she will start the process. Listened as Cj desribes Pt's current decline. At baseline Pt can ambulate with the use of walker and standbye assist but currently is bed bound. Cj reports Pt would not be able to sit up in chair safely on his own. Pt has stop eating and drinking as well. He requires assistance with bathing and dressing. Pt also experiences incontinence of bowel and bladder. Baseline incontinence is occasional. Called and spoke with staff at Pt's foster home. They report Pt has not been able to swallow or has been spitting his food and fluids out. Staff also reports the haloperidol is not benefical. Staff report Pt does not appear to experience any pain. Spoke with Dr Larose and reported family is choosing hospice. Dr Patel will discharge Pt with a prescription for Ativan. Pt's current assessment is not baseline and appears to be declining. PPS 30% [place] 40% FAST 7D ADLs 6/ Plan: Pt will discharge home with hospice referral and medication to help with comfort. Will remain available.
== END 2019-01-19 15:28 | disposition home or self-care (01) ==
LOC: ER 10:00
PROVIDERS: Emergency Medicine
DX: F03.90 Unspecified dementia, unspecified severity, without behavioral disturbance, psychotic disturbance, mood disturbance, and anxiety (principal); R41.82 Altered mental status, unspecified; R45.1 Restlessness and agitation; Z88.8 Allergy status to other drugs, medicaments and biological substances; Z79.899 Other long term (current) drug therapy; Z87.440 Personal history of urinary (tract) infections
CPT/HCPCS: 51701; 70450; 71046; 80053; 81001; 85025; 87086; 96365-59; 96375-59; 99285-25; J0696; J2060